=== PATIENT | male | born 1990 | race Caucasian/White ===

== ENCOUNTER 2023-04-19 20:38 | Emergency (ER) | payer OTHER, SELFPAY ==
--- NOTE | ~2023-04-19 | CT_ITS ---
EXAMINATION:CT diagnostic chest wo con DATE: 04/19/2023 21:59 INDICATION: Rib pain. TECHNIQUE: Computed tomography (CT) of the chest was performed without intravenous contrast. Automate d exposure control and iterative reconstruction technique were employed. The dose-length product (DLP ) was 325.09 mGy-cm. COMPARISON: Chest 2 views 03/01/2013 FINDINGS: There are a few peripheral nodules in right lung measuring up to 6 mm, likely benign. No pl eural effusion. The heart size is normal. No pericardial effusion. There is a healing fracture of lef t ninth rib with callus formation. There is mild thoracic spondylosis. IMPRESSION: 1. Healing fracture of left ninth rib. Reviewed, dictated and finalized at location E. D ATTENDANT
[2023-04-19 20:39] VITALS: BP 138/98; PULSE 112; RESP 16; TEMP 36.8; O2SAT 100
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
== END 2023-04-19 22:44 | disposition home or self-care (01) ==
PROVIDERS: Emergency Provider Physician Assistant
DX: R07.81 Pleurodynia (principal)
CPT/HCPCS: 71250; 99284

== ENCOUNTER 2023-06-02 00:16 | Emergency (ER) | payer OTHER, SELFPAY ==
[2023-06-02 00:23] VITALS: BP 127/91; PULSE 95; RESP 17; TEMP 36.3; O2SAT 99
[2023-06-02 01:39] VITALS: BP 133/109; PULSE 99; RESP 15; O2SAT 95
[2023-06-02 01:45] VITALS: O2SAT 98
--- NOTE | 2023-06-02 02:05 | ED.GENADULT ---
HPI - General Adult General Chief complaint: Recheck/Abnormal Lab/Rx Stated complaint: med refills Time Seen by Provider: 06/02/23 01:35 History of Present Illness HPI narrative: Patient is a 33-year-old male who presents to the emergency department this evening for medication refill. Patient states that he ran out of his Flexeril and his albuterol inhaler. Patient takes 10 mg of Flexeril as needed for lower back muscle spasms. Patient denies any recent falls or injury or any recent trauma to his lower back. Patient also states that his albuterol inhaler is use as needed for shortness of breath. Patient is currently denying any additional symptoms and has no other concerns. Denies chest pain or shortness of breath and denies any fevers or chills. There are no other modifying, alleviating, or precipitating factors at this time. Related Data Allergies Allergy/AdvReac Type Severity Reaction Status Date / Time No Known Allergies Allergy Verified 06/02/23 00:18 Review of Systems Review of Systems: All systems are reviewed and are negative unless stated otherwise in the HPI. PMFSH Comments Denies any significant past medical or surgical history, denies any significant family history. Exam Narrative: General: Alert, awake, afebrile, in no acute distress. HEENT: PERRL, no rhinorrhea, no post nasal drip, oropharynx clear. Neck: Trachea midline, no JVD, no lymphadenopathy. Cardiovascular: Regular rate and rhythm, no murmurs, rubs or gallops, no peripheral edema. Respiratory: Clear to auscultation bilaterally, no tachypnea, no wheezing, no rhonchi, no rubs, no respiratory distress. Abdomen: Soft, nontender, nondistended, no rebound, no guarding, no peritoneal signs. Musculoskeletal: No joint swelling or deformity, normal muscle tone. Back: No midline tenderness to palpation over the cervical, thoracic and lumbar spine, no step-offs or deformities. Skin: No rashes or petechia, no signs of infection. Psychiatric: Alert and oriented, normal behavior and judgment for situation. Neurological: Alert and oriented to person, place, and time. Follows all commands. No focal deficits, speech is clear and fluent. Course Vital Signs Vital signs: Vital Signs Temperature 97.3 F L 06/02/23 00:23 Pulse Rate 95 06/02/23 00:23 Respiratory Rate 17 06/02/23 00:23 Blood Pressure 127/91 H 06/02/23 00:23 Pulse Oximetry 99 06/02/23 00:23 Oxygen Delivery Room Air 06/02/23 00:23 Temperature 97.3 F L 06/02/23 00:23 Pulse Rate 99 06/02/23 01:39 Respiratory Rate 15 06/02/23 01:39 Blood Pressure 133/109 H 06/02/23 01:39 Pulse Oximetry 98 06/02/23 01:45 Oxygen Delivery Room Air 06/02/23 01:45 Medical Decision Making MDM Narrative Medical decision making narrative: The patient was evaluated by myself in the emergency department. History is obtained from patients who is an independent historian and physical exam was performed. External medical records were reviewed at this time. Patient was provided with scripts for Flexeril and an albuterol inhaler. I have evaluated and discussed social determinants of health with the patient that could potentially impact subsequent diagnosis and treatment plans. On repeat assessment of the patient, reevaluation revealed that the patient is doing well and is in no acute distress. Patient symptoms have remained stable since he arrived to our emergency department. Repeat vital signs were all reviewed and noted to be stable. Differential diagnosis and treatment plan were discussed with the patient at bedside. Patient agrees with discussion and after shared medical decision making agrees with discharge. All questions were answered to the patient's satisfaction. Patient will follow up with his PCP in 3-5 days. Patient was provided with strict return precautions and instructed to return to the emergency department if any new or worsening symptoms develop. The patient was discharg
--- NOTE | 2023-06-07 09:45 | PC.NURSE ---
Pt called to request his medications to be called in to [place], [place] - Prescriptions were printed for him and he calls 5 days later to attempt to have the prescriptions called in to a pharmacy in [place]. Instructed pt that he needs to find a physician in [place] to have his medication refills managed by a PCP.
== END 2023-06-02 02:19 | disposition home or self-care (01) ==
PROVIDERS: Emergency Provider Emergency Medicine; PCP Internal Medicine
DX: M62.830 Muscle spasm of back (principal); Z76.0 Encounter for issue of repeat prescription
CPT/HCPCS: 99281